=== PATIENT | female | born 1955 | race Caucasian/White ===

== ENCOUNTER 2022-08-24 05:46 | Day surgery (SDC) | payer MEDICARE ==
[2022-08-20 16:18] VITALS: BMI 24.3
[2022-08-24] MEDS ORDERED: Lidocaine 1% PF 5 ML VIAL ONE (07:08)
[2022-08-24] MEDS ORDERED: PROPOFOL 0 ML ONE (07:08)
[2022-08-24] MEDS ORDERED: PROPOFOL 20 ML ONE (07:51)
== END 2022-08-24 08:45 | disposition home or self-care (01) ==
LOC: CSHSDC 05:46
PROVIDERS: ATTEND Surgery
PROC: 0DB58ZX Excision of Esophagus, Via Natural or Artificial Opening Endoscopic, Diagnostic (ICD-10-PCS; principal; 2022-08-24)
PROC: 0DB68ZX Excision of Stomach, Via Natural or Artificial Opening Endoscopic, Diagnostic (ICD-10-PCS; 2022-08-24)
PROC: 0D758ZZ Dilation of Esophagus, Via Natural or Artificial Opening Endoscopic (ICD-10-PCS; 2022-08-24)
DX: K29.70 Gastritis, unspecified, without bleeding (principal); K31.A11 Gastric intestinal metaplasia without dysplasia, involving the antrum; K21.9 Gastro-esophageal reflux disease without esophagitis; E78.00 Pure hypercholesterolemia, unspecified; F41.9 Anxiety disorder, unspecified; F32.A Depression, unspecified; Z79.899 Other long term (current) drug therapy; Z88.2 Allergy status to sulfonamides; Z91.040 Latex allergy status; Z87.891 Personal history of nicotine dependence
CPT/HCPCS: 88305; J2704

== ENCOUNTER 2022-12-09 08:38 | Outpatient (CLI) | payer MEDICARE | END 2022-12-09 08:39 | disposition home or self-care (01) | LOC: CSHMRI 08:38 | PROVIDERS: ATTEND Physician Assistant Medical | DX: K86.2 Cyst of pancreas (principal) | CPT/HCPCS: 74183; 82565 ==

== ENCOUNTER 2024-10-12 10:27 | Outpatient (CLI) | payer MEDICARE ==
[2024-10-12] MEDS ORDERED: Magnevist 469MG/ML 20 ML VIAL ONE (11:36)
== END 2024-10-12 10:28 | disposition home or self-care (01) ==
LOC: CSHMRI 10:27
PROVIDERS: ATTEND Physician Assistant Medical
DX: K59.00 Constipation, unspecified (principal); K86.2 Cyst of pancreas; K22.4 Dyskinesia of esophagus
CPT/HCPCS: 74183; 82565